=== PATIENT | female | born 1935 | race Caucasian/White ===

== ENCOUNTER 2018-05-08 08:40 | Day surgery (SDC) | payer MEDICARE, OTHER ==
[2018-05-08] VITALS (11 sets, daily range): BP systolic 101–151; BP diastolic 61–91
[~2018-05-08] VITALS: Ht 167.6 cm; Wt 100.7 kg
[2018-05-08] MEDS ORDERED: normal saline 1000ml 1,000 ML IV SCH (09:25)
[2018-05-08] MEDS ORDERED: diphenhydrAMINE 25mg capsule PO PRN (09:25)
[2018-05-08] MEDS ORDERED: LORazepam 0.5 MG tablet PO PRN (09:25)
[2018-05-08] MEDS ORDERED: nitroGLYCERIN 0.4mg SUBLingual tab SL PRN (09:25)
[2018-05-08] MEDS ORDERED: MULT-38 PO (09:49)
[2018-05-08] MEDS ORDERED: CHOL2000 PO (09:49)
[2018-05-08] MEDS ORDERED: ASCO500C15 PO (09:49)
[2018-05-08] MEDS ORDERED: LOSA25TA96 PO (09:49)
[2018-05-08] MEDS ORDERED: POTA20PA40 PO (09:49)
[2018-05-08] MEDS ORDERED: FURO-149 PO (09:49)
[2018-05-08] MEDS ORDERED: APIX5TAB3 PO (09:49)
[2018-05-08] MEDS ORDERED: CALC600T12 PO (09:49)
[2018-05-08] MEDS ORDERED: ATOR40TA3 PO (09:49)
[2018-05-08] MEDS ORDERED: RISE150T PO (09:49)
[2018-05-08] MEDS ORDERED: CARV-49 PO (09:49)
[2018-05-08 09:56] LABS: PARTIAL THROMBOPLASTIN TIME 25 SECONDS (22-32)
[2018-05-08] MEDS ORDERED: midazolam 2 mg/2 ml injection ONE (11:05)
[2018-05-08] MEDS ORDERED: fentaNYL/PF 50MCG/1 ML 2ML syringe ONE (11:05)
[2018-05-08] MEDS ORDERED: iohexol 350 MG/ML 50ML vial IV ONE (11:06)
[2018-05-08] MEDS ORDERED: iohexol 350MG/ML 100ml bottle IV ONE (11:06)
[2018-05-08] MEDS ORDERED: heparin 1,000 UNITS/NS 500ml 500 ML ONE (11:06)
[2018-05-08] MEDS ORDERED: LIDOcaine 1% 30ml preserv. free vial ONE (11:16)
[2018-05-08] MEDS ORDERED: OXAZEpam 15mg capsule PO PRN (12:40)
[2018-05-08] MEDS ORDERED: ondansetron/PF 4mg/2ml inj IV PRN (12:40)
[2018-05-08] MEDS ORDERED: HYDROcodone/acetaminophen 5mg/325mg tablet PO PRN (12:40)
[2018-05-08] MEDS ORDERED: proCHLORperazine 10 MG/2 ml inj IV PRN (12:40)
[2018-05-08] MEDS ORDERED: acetaminophen 325mg tablet PO PRN (12:40)
[2018-05-08] MEDS ORDERED: HYDROcodone/acetaminophen 10/325mg tab PO PRN (12:40)
== END 2018-05-08 18:00 | disposition home or self-care (01) ==
LOC: SSTAY O 08:40
PROVIDERS: ATTEND Internal Medicine Cardiovascular Disease
DX: I25.10 Atherosclerotic heart disease of native coronary artery without angina pectoris (principal); I44.7 Left bundle-branch block, unspecified; I48.91 Unspecified atrial fibrillation; I10 Essential (primary) hypertension; E78.5 Hyperlipidemia, unspecified; M19.90 Unspecified osteoarthritis, unspecified site; Z90.12 Acquired absence of left breast and nipple; Z90.49 Acquired absence of other specified parts of digestive tract; Z85.3 Personal history of malignant neoplasm of breast; Z79.01 Long term (current) use of anticoagulants; Z88.5 Allergy status to narcotic agent; Z79.899 Other long term (current) drug therapy; Z98.890 Other specified postprocedural states
CPT/HCPCS: 36415; 85610; 85730; 93005; 93458; 99152; A6257; C1760; C1769; J1644; J2250; J3010; J3490; J7030; Q0163; Q9967; 99153; A4620